=== PATIENT | female | born 1985 ===

== ENCOUNTER 2017-12-05 15:41 | Emergency (ER) | payer SELFPAY ==
--- NOTE | 2017-12-05 16:12 | UC ---
Ear Complaint HPI - HPI Summary HPI Summary: has used cortisporin drops for bilateral otitis externa with out much relief--- the used vinegar drops,,, now has continued bilateral ear pain-- - History of Current Complaint Chief Complaint: UCEar Stated Complaint: EAR COMPLAINT Time Seen by Provider: 12/05/17 15:45 Hx Obtained From: Patient Hx Last Menstrual Period: one week ago ?: No Onset/Duration: Sudden Onset, Lasting Days, Still Present Severity Initially: Moderate Severity Currently: Moderate Pain Intensity: 5 Pain Scale Used: 0-10 Numeric Aggravating Factors: Nothing Alleviating Factors: Nothing - Allergies/Home Medications Allergies/Adverse Reactions: Allergies Allergy/AdvReac Type Severity Reaction Status Date / Time No Known Allergies Allergy Verified 12/05/17 15:53 Home Medications: Home Medications Neomycin Polymyxin B Sulfates 3 drop BOTH EARS BID 12/05/17 [History] Omeprazole CAP* [Prilosec CAP* 20 MG] 1 tab PO DAILY 12/05/17 [History Confirmed 12/05/17] PMH/Surg Hx/FS Hx/Imm Hx Previously Healthy: No GI/ History: Gastroesophageal Reflux - Surgical History Surgical History: None - Family History Known Family History: Positive: None - Social History Occupation: Employed Full-time Lives: With Family Alcohol Use: Occasionally Substance Use Type: None Smoking Status (MU): Never Smoked Tobacco Review of Systems Constitutional: Fever Skin: Negative Eyes: Negative ENT: Ear Ache - bilateral Respiratory: Negative Cardiovascular: Negative Gastrointestinal: Negative Genitourinary: Negative Motor: Negative Neurovascular: Negative Musculoskeletal: Negative Neurological: Negative Psychological: Negative Is Patient Immunocompromised?: No All Other Systems Reviewed And Are Negative: Yes Physical Exam Triage Information Reviewed: Yes Appearance: Well-Appearing, No Pain Distress, Well-Nourished Vital Signs: Initial Vital Signs Temp 101.1 F 12/05/17 15:48 Pulse 92 12/05/17 15:48 Resp 12 12/05/17 15:48 BP 158/108 12/05/17 15:48 Pulse Ox 100 12/05/17 15:48 Vital Signs Reviewed: Yes Eye Exam: Normal Eyes: Positive: Conjunctiva Clear ENT Exam: Normal ENT: Positive: Normal ENT inspection, Hearing grossly normal, Pharynx normal, TMs normal, Uvula midline, Other - bilateral ear canal redness. Negative: Tonsillar swelling, Tonsillar exudate, Trismus, Muffled voice, Hoarse voice, Dental tenderness, Sinus tenderness Dental Exam: Normal Neck exam: Normal Neck: Positive: Supple, Nontender, No Lymphadenopathy Respiratory Exam: Normal Respiratory: Positive: Chest non-tender, Lungs clear, Normal breath sounds, No respiratory distress, No accessory muscle use Cardiovascular Exam: Normal Cardiovascular: Positive: RRR, No Murmur, Pulses Normal, Brisk Capillary Refill Musculoskeletal Exam: Normal Musculoskeletal: Positive: Strength Intact, ROM Intact, No Edema Neurological Exam: Normal Neurological: Positive: Alert, Muscle Tone Normal Psychological Exam: Normal Skin Exam: Normal Ear Complaint Course/Dx - Course Course Of Treatment: stop corticosporin drops and stop vinegar-----change to Ciprodex follow with pcp or return as needed - Differential Dx/Diagnosis Provider Diagnoses: Bilateral otitis externa, elvaated blood pressure related to chief complaint and pain Discharge - Sign-Out/Discharge Documenting (check all that apply): Patient Departure All imaging exams completed and their final reports reviewed: No Studies - Discharge Plan Condition: Stable Disposition: HOME Prescriptions: Ciproflox/Dexameth OTIC.SUSP* [Ciprodex OTIC.SUSP*] 4 drop .SEE ORDER BID 7 Days #1 btl Patient Education Materials: Otitis Externa (ED), How to Use Ear Drops (ED) Referrals: No Primary Care Phys,NOPCP [Primary Care Provider] - Additional Instructions: return or follow with primary care are needed - Billing Disposition and Condition Condition: STABLE Disposition: Home
== END 2017-12-05 16:29 | disposition home or self-care (01) ==
LOC: UCEAST 15:41
DX: H60.93 Unspecified otitis externa, bilateral (principal); R03.0 Elevated blood-pressure reading, without diagnosis of hypertension
CPT/HCPCS: 99202; G0463